=== PATIENT | male | born 1990 | race Hispanic/Latino ===

== ENCOUNTER 2023-07-13 23:12 | Emergency (ER) | payer SELFPAY ==
[2023-07-14] MEDS ORDERED: Ibuprofen 200 MG TAB ONE ×2 (00:06)
== END 2023-07-14 00:18 | disposition home or self-care (01) ==
LOC: CSHERS 23:12
DX: S93.602A Unspecified sprain of left foot, initial encounter (principal); F17.210 Nicotine dependence, cigarettes, uncomplicated; W11.XXXA Fall on and from ladder, initial encounter